=== PATIENT | female | born 1990 | race African-American/Black ===

== ENCOUNTER 2016-07-04 20:34 | Emergency (ER) | payer MEDICAID ==
[~2016-07-04] VITALS: Ht 152.4 cm; Wt 72.0 kg
[2016-07-04 20:37] VITALS: TEMP 98.3
[2016-07-04] MEDS ORDERED: ZOVIRAX800 MG PO (20:59)
[2016-07-04 21:13] VITALS: BP 110/79; PULSE 79
== END 2016-07-04 21:16 | disposition home or self-care (01) ==
LOC: COL.ER 20:34
DX: A60.00 Herpesviral infection of urogenital system, unspecified (principal)